=== PATIENT | male | born 1970 | race Caucasian/White ===

== ENCOUNTER 2019-01-19 14:15 | Emergency (ER) | payer SELFPAY ==
[2019-01-19 14:21] VITALS: BP 144/93; PULSE 87; RESP 17; TEMP 36.6; O2SAT 98
--- NOTE | 2019-01-19 14:30 | W.ED.GENAD ---
Discharge Plan Disposition Patient Disposition: HOME Condition: Good Discharge Details Chief Complaint: Allergic Clinical Impression: Hives Primary Care Provider: Francesco De Jesus ED Provider: King Arce Home Meds and New Rx's Prescriptions: New ranitidine HCl 150 mg tablet 150 mg PO DAILY Qty: 10 RF: 0 prednisone 50 MG tablet 50 mg PO DAILY Qty: 5 RF: 0 hydroxyzine HCl 25 mg tablet 25 mg PO QID PRN (Reason: itching) 7 Days Qty: 28 RF: 0 No Action sumatriptan succinate [Imitrex] 25 MG tablet 25 mg PO BID PRN Qty: 8 RF: 5 saw palmetto fruit 450 MG capsule 450 mg PO DAILY Qty: 90 RF: 3 hydrocortisone [Anusol-HC] 30 GM cream with perineal applicator 1 applic RC BID PRNQty: 30 RF: 1 acetaminophen [Tylenol] 325 MG tablet 325 mg PO Q4H PRN PRNQty: 0 RF: 0 ibuprofen 800 MG tablet 800 mg PO PRN PRNRF: 0 Discharge Instructions Instructions: Urticaria (ED) Additional Instructions: Please take the medication as directed. If you notice any worsening of your symptoms, or any new symptoms such as lesions in your mouth, worsening rash vomiting, diarrhea, fever, chills, shortness of breath, chest pain, numbness, weakness, or fainting , please return immediately to the emergency department for reevaluation. Please follow up with your primary care provider as soon as possible for reassessment and reevaluation. As always, it was a pleasure participating in your medical care today. Referrals: Francesco De Jesus [Primary Care Provider] - Medical Decision Making This is a pleasant 48-year-old male who presents for evaluation of hives on his arms for the last 6 days. It is slightly improved with Benadryl and topical Cortistat corticosteroid. He does admit to notable itchiness. Exam demonstrates no evidence of oral lesions. Negative Nikolsky sign. No evidence of Franklin-Bakari syndrome, staph scalded skin syndrome, shingles, or toxic epidermal necrolysis. No signs or symptoms of anaphylaxis. No other significant abnormalities. We will give the patient oral steroids and a prescription for this, start him on an H2 ken, and give Atarax for itching. I have extensively reviewed the treatment plan and discharge instructions with the patient and their family. I have addressed all patient concerns at this time. The patient and family was made aware of what symptoms to monitor for that would warrant a return to the emergency department. Discussed the plan with the patient and family, they demonstrate verbal understanding and agreement with our assessment and plan at this time. HPI General Date/Time Provider Initiated Documentation: 01/19/19 14:18. HPI Narrative: This is a 40-year-old male with no significant past medical history except for an allergy to penicillins and tomatoes who presents today with for evaluation of hives. Patient states that for the last 6 days he has had mild hives on his arms and shoulders. He has been taking [id number] hydrocortisone cream as well as Benadryl, has only noticed mild improvement with this. He is notably pruritic. He denies any oral lesions, nausea vomiting or diarrhea, difficulty swallowing, sore throat, shortness of breath. He denies any history of anaphylaxis. He states that the symptoms are consistent with previous mild allergic reactions to exposure to tomatoes. He denies any other complaints or modifying factors at this reny. Related Data Home Medications Medication Instructions Recorded Confirmed acetaminophen [Tylenol] 325 mg PO Q4H PRN PRN #0 tab 11/27/16 01/19/19 sumatriptan succinate [Imitrex] 25 mg PO BID PRN #8 tab 04/14/17 01/19/19 hydrocortisone [Anusol-HC] 1 applic RC BID PRN #30 gm 04/21/17 01/19/19 saw palmetto fruit 450 mg PO DAILY #90 tab-cap 04/21/17 01/19/19 ibuprofen 800 mg PO PRN PRN 10/17/17 01/19/19 hydroxyzine HCl 25 mg PO QID PRN 7 Days #28 tab 01/19/19 prednisone 50 mg PO DAILY #5 tab 01/19/19 ranitidine HCl 150 mg PO DAILY #10 tab 01/19/19 Previous Rx's Medication Instructions Recorded acetaminophen [Tylenol] 325 mg PO Q4H PRN PRN #0 tab 11/27/16 hydroxyzine HCl 25 mg PO QID PRN 7 Days #28 tab 01/19/19 prednisone 50 mg PO DAILY #5 tab 01/19/19 ranitidine HCl 150 mg PO DAILY #10 tab 01/19/19 Allergies Allergy/AdvReac Type Severity Reaction Status Date / Time ampicillin Allergy Intermediate Hives Unverified 01/19/19 14:23 Penicillins Allergy Intermediate Hives Unverified 01/19/19 14:23 General Stated Complaint: Allergic RAMON: 3 Review of Systems Review of Systems All systems reviewed & are unremarkable except as noted in HPI and below PFSH Family History Mother Hyperlipidemia Father No problems noted. Sister No problems noted. Brother No problems noted. Grandfather No problems noted. Grandfather Diabetes Grandmother Heart disease Hyperlipidemia Stroke Grandmother No problems noted. Daughter No problems noted. Daughter No problems noted. Daughter No problems noted. Social History Smoking/Tobacco Use Status: Former Tobacco Use Alcohol Intake: current Alcohol Intake frequency: holidays/special occasions only Substance use type: does not use Do you feel safe in your relationship?: Yes Exam Narrative Exam Narrative: 1.Const: Well-nourished, Well-developed, appearing stated age 2.Eyes: PERRL, no conjunctival injection, and symmetrical lids. 3.ENT: Atraumatic external nose and ears. Moist MM. Neck: Symmetric, trachea midline, No thyromegaly. 4.CVS: +S1/S2, No murmurs or gallops. Peripheral pulses 2+ and equal in all extremities. Brisk capillary refill in all extremities. 5.RESP: Unlabored respiratory effort. Clear to auscultation bilaterally. No wheezes rales or rhonchi 6.GI: Soft, Nontender/Nondistended, No hepatosplenomegaly. No guarding or rebound. 7.MSK: Normocephalic/Atraumatic, Extremities w/o deformity or ttp No cyanosis or clubbing, Normal movement of all extremities 8.Skin: Warm, Dry. Mild hives over the patient's upper arms bilaterally. Notably blanchable. No vesicles. Negative Nikolsky sign. No evidence of Franklin-Bakari syndrome, staph scalded skin syndrome, shingles, or toxic epidermal necrolysis. 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 Sensation grossly intact, no focal neurologic deficits. 10.Psych: (AAO) x3. Appropriate mood and affect Course Vital Signs Temperature 36.6 C 01/19/19 14:21 Pulse 87 01/19/19 14:21 Respiratory Rate 17 01/19/19 14:21 Blood Pressure 144/93 H 01/19/19 14:21 Pulse Oximetry 98 01/19/19 14:21 Temperature 36.6 C 01/19/19 14:21 Temperature Source Temporal Artery Scan 01/19/19 14:21 Pulse 87 01/19/19 14:21 Respiratory Rate 17 01/19/19 14:21 Respiratory Effort Non-Labored 01/19/19 14:21 Blood Pressure 144/93 H 01/19/19 14:21 Blood Pressure Position Sitting 01/19/19 14:21 Pulse Oximetry 98 01/19/19 14:21 Oxygen Delivery Method Room Air 01/19/19 14:21 Oxygen Flow Rate 0 01/19/19 14:21 Pain Level 7 01/19/19 14:21
[2019-01-19] MEDS: predniSONE 20 MG TAB 60 MG PO (14:31)
[2019-01-19] MEDS: hydrOXYzine HCL 25 MG TAB PO (14:32)
== END 2019-01-19 14:44 | disposition home or self-care (01) ==
LOC: ER 14:52
PROVIDERS: Emergency Provider Student in an Organized Health Care Education/Training Program; PCP Family Medicine
DX: L50.0 Allergic urticaria (principal)
CPT/HCPCS: 99283; J7512

== ENCOUNTER 2019-09-18 14:04 | Emergency (ER) | payer OTHER, SELFPAY ==
[2019-09-18] VITALS (10 sets, daily range): BP systolic 128–160; BP diastolic 76–101; PULSE 76–104; RESP 16–20; TEMP 36.1–37.1; O2SAT 96–99
--- NOTE | 2019-09-18 14:55 | ED.GENADUL_ITS ---
Discharge Plan Disposition Patient Disposition: HOME Condition: Stable Discharge Details Chief Complaint: RespSymp Clinical Impression: Upper respiratory disease, Chest pain Primary Care Provider: Francesco De Jesus ED Provider: Dre Martines Home Meds and New Rx's Prescriptions: New prednisone 20 mg tablet 60 mg PO DAILY 4 Days Qty: 12 RF: 0 doxycycline hyclate 100 mg tablet 100 mg PO BID Qty: 14 RF: 0 Continued sumatriptan succinate [Imitrex] 25 MG tablet 25 mg PO BID PRN Qty: 8 RF: 5 saw palmetto fruit 450 MG capsule 450 mg PO DAILY Qty: 90 RF: 3 hydrocortisone [Anusol-HC] 30 GM cream with perineal applicator 1 applic RC BID PRNQty: 30 RF: 1 acetaminophen [Tylenol] 325 MG tablet 325 mg PO Q4H PRN PRNQty: 0 RF: 0 ibuprofen 800 MG tablet 800 mg PO PRN PRNRF: 0 ranitidine HCl 150 mg tablet 150 mg PO DAILY Qty: 10 RF: 0 Discharge Instructions Instructions: Upper Respiratory Infection (ED) Additional Instructions: follow up with your primary care provider within 1 week especially if symptoms continue if you feel more ill, have worsening shortness of breath or pain return to the emergency department Stand Alone Forms: Work Release Discharge Data Discharge Date/Time-TO BE ENTERED AT DEPARTURE: 09/18/19 18:55 Medical Decision Making <MIRYAM Montero - Last Filed: 09/20/19 00:52> 49-year-old patient presenting for 2 days of flulike symptoms. Patient reports moderate nasal drainage and congestion. Denies sore throat. Reports mild headache. No associated dizziness. Patient reports moderate cough which is his primary complaint at this time. Patient reports a spastic type cough associated with moderate chest congestion. Patient reports mild chest pressure but no chest pain at rest or radicular type symptoms. Patient does report some diaphoresis. Patient does report mild nausea after coughing. Denies vomiting or diarrhea. Denies abdominal pain. Patient works at the hospital cleaning. Patient reports moderate fatigue but no widespread body ache. Patient is a non- smoker but did have a smoking history 15 years ago. No history of coronary artery disease. History of borderline hyperlipidemia. Influenza testing negative. This patient's EKG reveals a regular rate and rhythm with a rate of 76. Patient has a nonspecific RSR pattern in V1 and V2. This was reviewed with my attending Dr. Luz Maria Vann. There are no previous comparisons. After discussion with Dr. Vann regarding patient's upper respiratory symptoms in conjunction with presentation of diaphoresis and nonspecific EKG changes her recommendation is to add troponin to evaluate for possible ACS Although patient lacks associated chest pain or radicular symptoms. Patient's signed out to the oncoming provider pending the remaining results.. <Dre Martines MD - Last Filed: 09/18/19 18:43> Pt's xray unremarkable. Pt states he feels much better after having some nebs and has clear lungs. STates cough for several days without fevers so doubt influenza, could have pna not evidence on xray. Will obtain second troponin and continue to monitor, patient speaking in full sentences and now appears well on exam. second troponin negative and he feels much better. Suspect early pna and will treat with doxycycline and also inhaler and steroids. ADvised to f/u with pcp and return precautions given Imaging Data Radiologic Study: Attestation: I personally reviewed and interpreted this imaging study as follows: Imaging: X-Ray Radiologist's impression: no acute findings Lab Data Lab results reviewed: Yes I reviewed the patient's lab results. HPI <MIRYAM Montero - Last Filed: 09/20/19 00:52> General Date/Time Provider Initiated Documentation: 09/18/19 14:15 . HPI Narrative: Is a 49-year-old patient presenting for 2 days of flulike symptoms. Patient reports moderate nasal drainage and congestion. Denies sore throat. Reports mild headache. No associated dizziness. Patient reports moderate cough which is his primary complaint at this time. Patient reports a spastic type cough associated with moderate chest congestion. Patient reports mild chest pressure but no chest pain at rest or radicular type symptoms. Patient does report some diaphoresis. Patient does report mild nausea after coughing. Denies vomiting or diarrhea. Denies abdominal pain. Patient works at the hospital cleaning. Patient reports moderate fatigue but no widespread body ache. Patient is a non- smoker but did have a smoking history 15 years ago. No history of coronary artery disease. History of borderline hyperlipidemia. Related Data Home Medications Medication Instructions Recorded Confirmed acetaminophen [Tylenol] 325 mg PO Q4H PRN PRN #0 tab 11/27/16 09/18/19 sumatriptan succinate [Imitrex] 25 mg PO BID PRN #8 tab 04/14/17 09/18/19 hydrocortisone [Anusol-HC] 1 applic RC BID PRN #30 gm 04/21/17 09/18/19 saw palmetto fruit 450 mg PO DAILY #90 tab-cap 04/21/17 09/18/19 ibuprofen 800 mg PO PRN PRN 10/17/17 09/18/19 ranitidine HCl 150 mg PO DAILY #10 tab 01/19/19 09/18/19 doxycycline hyclate 100 mg PO BID #14 tab 09/18/19 prednisone 60 mg PO DAILY 4 Days #12 tab 09/18/19 Previous Rx's Medication Instructions Recorded acetaminophen [Tylenol] 325 mg PO Q4H PRN PRN #0 tab 11/27/16 ranitidine HCl 150 mg PO DAILY #10 tab 01/19/19 doxycycline hyclate 100 mg PO BID #14 tab 09/18/19 prednisone 60 mg PO DAILY 4 Days #12 tab 09/18/19 Allergies Allergy/AdvReac Type Severity Reaction Status Date / Time ampicillin Allergy Intermediate Hives Unverified 09/18/19 14:28 Penicillins Allergy Intermediate Hives Unverified 09/18/19 14:28 General Stated Complaint: RespSymp RAMON: 3 Review of Systems <MIRYAM Montero - Last Filed: 09/20/19 00:52> All systems reviewed & are unremarkable except as noted in HPI and below Constitutional Constitutional: Reports chills, Reports fatigue, Reports fever(s) (Subjective), Reports headache(s) and Reports malaise ENT Ears, Nose, Mouth, and Throat: Reports headache(s), Reports nasal congestion, Reports nasal discharge, Denies nasal obstruction, Denies neck pain, Denies tinnitus, Denies sinus pain, Denies sinus pressure and Denies sore throat Cardiovascular Cardiovascular: Denies dyspnea on exertion Respiratory Respiratory: Reports cough, Denies dyspnea on exertion and Denies wheezing Gastrointestinal Gastrointestinal: Denies abdominal pain, Reports nausea and Denies vomiting Musculoskeletal Musculoskeletal: Denies neck pain Neurologic Neurologic: Reports headache(s) Endocrine Endocrine: Reports fatigue Allergic/Immunologic Allergic/Immunologic: Denies wheezing PFSH <MIRYAM Montero - Last Filed: 09/20/19 00:52> Family History Mother Hyperlipidemia Father No problems noted. Sister No problems noted. Brother No problems noted. Grandfather No problems noted. Grandfather Diabetes Grandmother Heart disease Hyperlipidemia Stroke Grandmother No problems noted. Daughter No problems noted. Daughter No problems noted. Daughter No problems noted. Social History Smoking/Tobacco Use Status: Former Tobacco Use Alcohol Intake: current Alcohol Intake frequency: holidays/special occasions only Substance use type: does not use Do you feel safe at home: Yes Do you feel safe in your relationship?: Yes Exam <MIRYAM Montero - Last Filed: 09/20/19 00:52> Narrative Exam Narrative: CONST: Ill appearing patient, in no acute distress. Well hydrated. Alert and oriented. HENMT: Head nomocephalic, normal to inspection. Atraumatic. Hearing grossly normal. TM with mild effusion on the left. Normal appearance on the right. Mild pharyngeal erythema. No sinus pain and pressure on exam. EYES: General normal appearance. Alignment normal. Eyelids normal. Conjunctiva normal. NECK: Normal visual inspection. FROM. Trachea midline. No Midline tenderness. No cervical lymphadenopathy present CHEST: Normal insepection of the chest. RESP: Normal respiratory effort. Speaking full sentences. No audible wheezing. No retractions. Bronchospastic cough. Breath sounds are clear and equal through all lung rodgers. Scattered wheezing. No rhonchi or rales. CARDIO: No JVD. No murmur. Regular rate and rhythm MUSCULOSKELETAL: Normal Gait. FROM of all extremities. SKIN: No rashes. Clammy NEURO: Alert and awake. Speech clear. PSYCH: Normal affect. Cooperative. Course <MIRYAM Montero - Last Filed: 09/20/19 00:52> Vital Signs Vital signs: Vital Signs Temperature 36.1 C L 09/18/19 14:22 Pulse 95 H 09/18/19 14:22 Respiratory Rate 20 09/18/19 14:22 Blood Pressure 149/101 H 09/18/19 14:22 Pulse Oximetry 98 09/18/19 14:22 Temperature 36.1 C L 09/18/19 14:22 Temperature Source Skin 09/18/19 14:22 Pulse 95 H 09/18/19 14:22 Respiratory Rate 20 09/18/19 14:22 Respiratory Effort 09/18/19 14:26 Blood Pressure 149/101 H 09/18/19 14:22 Blood Pressure Position Sitting 09/18/19 14:22 Pulse Oximetry 98 09/18/19 14:22 Oxygen Delivery Method Room Air 09/18/19 14:22 Oxygen Flow Rate 0 09/18/19 14:22 Lab/Test Results Lab/Test Results: 09/18/19 14:26 Nasopharynx Influenza Types A,B Antigen - Pending Sign Out <MIRYAM Montero - Last Filed: 09/20/19 00:52> Sign Out Data: Sign Out Comment: signed out pending initial troponin, repeat troponin and dispo. pt flu like w/ diaphoresis and mild non specific ECG changes. Last updated by Elda Rodarte PA at 09/18/19 16:19
[2019-09-18] MEDS: Albuterol/Ipratropium 3 ML UPD VIAL UPD (15:12)
--- NOTE | 2019-09-18 15:37 | DI.RAD_ITS ---
EXAM: XR CHEST 2V PA LATERAL CLINICAL HISTORY: cough r/o pneumonia. TECHNIQUE: 2D digital imaging was performed. COMPARISON: No exams were available for comparison FINDINGS: LUNGS: Clear. No pleural abnormality seen. HEART: Normal. MEDIASTINUM: Normal. OTHER FINDINGS:Normal. BONE:Normal. IMPRESSION: No acute pulmonary findings.
[2019-09-18 15:48] LABS: Abs Immature Grans 0.01 k/cumm (0.0-0.09); Absolute Basophil Count 0.03 k/cumm (0.0-0.2); Absolute Lymphocyte Count 1.44 k/cumm (1.2-3.4); Absolute Monocyte Count 0.46 k/cumm (0.11-0.7); Absolute Neutrophil Count 2.31 k/cumm (1.2-6.7); Basophils % 0.7; Eosinophils % 2.3; HCT 40.9 % (40.0-50.0); HGB 12.8 g/dL (13.5-17.5); Immature Grans % 0.2 %; Lymphocytes % 33.1; Mean Corp. HGB Concentration 31.3 g/dL (32.0-36.0); Mean Corpuscular Hemoglobin 25.9 pg (27.0-33.0); Mean Corpuscular Volume 82.8 fL (80-95); Monocytes % 10.6; Neutrophils % 53.1; Platelet Count 278 x1000/uL (130-400); RBC 4.94 m/cumm (4.50-6.00); RBC Distribution Width 16.4 % (11.8-14.1); White Blood Cell Count 4.35 k/cumm (4.4-10.8)
[2019-09-18 16:05] LABS: ALT 41 U/L (16-63); AST 36 U/L (15-37); Albumin 4.3 g/dL (3.4-5.0); Alkaline Phosphatase 126 U/L (46-116); Anion Gap 11.6 mmol/L (3-11); BUN 11 mg/dL (7-18); Bilirubin, Total 0.4 mg/dL (0.2-1.0); CO2 25.4 mmol/L (21.0-32.0); CREATININE 0.79 mg/dL (0.70-1.30); Calcium 8.7 mg/dL (8.5-10.1); Chloride 103 mmol/L (98-107); Glucose 98 mg/dL (74-106); Potassium 3.8 mmol/L (3.5-5.1); Sodium 140 mmol/L (136-145); Total Protein 8.1 g/dL (6.4-8.2)
[2019-09-18 16:06] LABS: Troponin I < 0.05 ng/Ml (<0.06)
--- NOTE | 2019-09-18 16:34 | DI.VRAD_ITS ---
PROCEDURE INFORMATION: Exam: XR Chest, 2 Views Exam date and time: 09/18/2019 3:43 PM Age: 49 years old Clinical indication: Patient HX: Cough, R/O pneumonia TECHNIQUE: Imaging protocol: XR of the chest Views: 2 views. COMPARISON: No relevant prior studies available. FINDINGS: Lungs: Unremarkable. No consolidation. Pleural space: Unremarkable. No pleural effusion. No pneumothorax. Heart/Mediastinum: Unremarkable. No cardiomegaly. Bones/joints: Unremarkable. IMPRESSION: No acute findings. Dictated and Authenticated by: Demarco Marquis MD. Ordering:CATRACHITA Schroeder MD
[2019-09-18] MEDS: predniSONE 20 MG TAB 60 MG PO (17:51)
[2019-09-18 18:35] LABS: Troponin I < 0.05 ng/Ml (<0.06)
[2019-09-18] MEDS: Inhaler, Assist Device 1 EACH MC (18:49)
[2019-09-18] MEDS: Albuterol HFA 8 GM 60 PUFF INH IH (18:49)
[2019-09-18] MEDS: Doxycycline Hyclate 100 MG CAP PO (18:49)
== END 2019-09-18 18:55 | disposition home or self-care (01) ==
PROVIDERS: Physician Assistant; Emergency Provider Emergency Medicine; PCP Family Medicine
DX: J06.9 Acute upper respiratory infection, unspecified (principal); R07.89 Other chest pain
CPT/HCPCS: 80053; 87449; 93005; 94640; 99284; 71046; 84484; 85025; 93010; J7512; J7620

== ENCOUNTER 2020-12-25 02:29 | Outpatient (CLI) | payer MEDICAID, SELFPAY ==
[2020-12-25 10:26] LABS: Source Nasal/Nares
[2020-12-25 13:33] LABS: COVID-19 PCR Negative (Negative)
== END 2020-12-25 02:30 | disposition home or self-care (01) ==
LOC: LBO 02:30
PROVIDERS: PCP Family Medicine; Visit Provider Surgery
DX: Z20.822 Contact with and (suspected) exposure to COVID-19 (principal)
CPT/HCPCS: 87635

== ENCOUNTER 2020-12-28 09:08 | Day surgery (SDC) | payer MEDICAID, SELFPAY ==
--- NOTE | 2020-12-28 06:39 | W.COLOREPORT ---
Date of service: 12/28/20 Time of Service: 09:45 Colonoscopy Report Date of procedure: 12/28/20 Pre-op diagnosis general: Colon Cancer Screening Post-op diagnosis procedure note: other (polyps) Procedure: Colonoscopy with polypectomy Surgeon: Jimena Garcia Anesthesia Type: General:No Airway (ASA 2/ Edwin Montes, TAYE) Estimated blood loss (mL): 3 Pathology: other (Ascending polyp and rectal polyp) Complications: None Disposition: same day Indications: The patient is here for Colonoscopy pre-op. He has no family history of colon cancer. He has not had any bowel habit changes. -Discussed colonoscopy bowel prep as well as the procedure. Discussed possible complications of the procedure to include bleeding, pain, perforation, missed small lesion/polyp, sore throat, aspiration and adverse reaction to the medications. Questions were answered to patient?s satisfaction. No guarantees were implied or given. Prep: Miralax/Dulcolax Procedure Start Time: 09:49 Procedure End Time: 10:11 Retraction Time: 13 minutes Findings: 2 small sessile polyps Procedure Description: After informed consent was obtained the patient was taken to the procedure room and placed in a left decubitous position. Monitors were applied and a time out was done. The patients name, date of , procedure, allergies to medications and metal in their body was reviewed. The patient was then sedated. Once sedated and comfortable a rectal exam was done. External exam was normal. Internal exam revealed a normal sphincter tone and no palpable masses. The prostate felt smooth. The scope was then introduced and retro-flexed. No internal hemorrhoids, polyps or masses were identified on retro-flexion. The scope was then advanced to the cecum without difficulty. The ileocecal vlave and appendiceal orifice were identified. The prep was adequate. The scope was then slowly retracted over 13 minutes back into the rectum. Polyps were removed with cold forceps in the ascending colon and rectum. There was no diverticulosis noted. The scope was removed and the patient was woken up and taken back to Same day surgery in stable condition. The patient tolerated the procedure well and there were no immediate complications. Follow up: The patient should follow up in 5 years unless they develop changes in bowel habits or other new gastrointestinal complaints.
--- NOTE | 2020-12-28 06:40 | W.PM.DSUDISC ---
Discharge Plan Disposition Patient Disposition: HOME Condition: Good Discharge Details Reason For Visit: Colonoscopy Attending Provider: Jimena Garcia Primary Care Provider: Francesco De Jesus Home Meds and New Rx's Prescriptions: Continued hydrocortisone [Proctosol HC] 2.5 % cream with perineal applicator 1 applic KS BID-QID PRN (Reason: pain) Qty: 30 RF: 4 CBD Oil 27 mg 27 mg PO DAILY RF: 0 omeprazole 40 mg capsule,delayed release(DR/EC) 40 mg PO DAILY Qty: 90 RF: 0 diclofenac sodium [Voltaren] 1 % gel 1 gm TP TID PRNRF: 0 saw palmetto 450 MG capsule 450 mg PO DAILY Qty: 90 RF: 3 albuterol sulfate [ProAir HFA] 90 mcg/actuation HFA aerosol inhaler 2 puff IH 6XD PRN (Reason: shortness of breath or wheezing) Qty: 18 RF: 0 ibuprofen 800 mg tablet 800 mg PO Q8H PRN (Reason: ankle pain) Qty: 90 RF: 2 acetaminophen 500 mg tablet 1,000 mg PO Q6H PRN (Reason: fever) Qty: 90 RF: 5 sumatriptan succinate 25 mg tablet 25 mg PO .COMPLEX Qty: 10 RF: 6 acetaminophen [Tylenol] 325 MG tablet 325 mg PO Q4H PRN PRNQty: 0 RF: 0 Discontinued bisacodyl [Dulcolax (bisacodyl)] 5 mg tablet,delayed release (DR/EC) 5 mg PO ONCE Qty: 4 RF: 0 polyethylene glycol 3350 17 gram/dose powder 238 g PO ONCE Qty: 238 RF: 0 Discharge Instructions Additional Instructions: Findings: 2 polyps Follow up: 5 years more then likely Please call if you develop: fevers >101.5 Nausea or Vomiting Abdominal pain that is not transient Rectal bleeding that is more then a tbsp A hard abdomen and inability to pass gas DAY SURGERY UNIT POST ENDOSCOPY INSTRUCTIONS Instructions for everyone who is given Anesthesia: For your safety, please do the following for the next 24 Hours: a. Do not drive or operate dangerous equipment b. Do not drink alcohol beverages or use any recreational drugs for the first 24 hours or while taking pain medications. The medications in your body may have a reaction that can be dangerous. c. Do not make any important decisions or sign any important papers 1. Generally there are no restrictions on your activity after a day or so has gone by, but you may feel a bit fatigued for a few days. 2. After you arrive home you may have a light meal and return to a normal diet as you can tolerate it without feeling sick to your stomach. 3. After surgery, you may feel pain or discomfort. This should be only transient, but if it persists please contact your doctor. 4. If there are any questions regarding the findings of your procedure, please feel free to contact your doctor. 6. If you are unable to contact your doctor with a problem, contact the hospital at [phone]. 7. Continue all your regular medications unless directed otherwise. I understand the above instructions and have no questions. Signature of Patient or Responsible Adult Escort Date/Time Name of Responsible Adult Escort Signature of Nurse Date/Time Activity:: Activity as Tolerated Diet:: As Tolerated Discharge Orders Discharge Orders: Discharge Order (Routine); Ordered 12/28/20 Ordered By: Jimena Garcia
[2020-12-28 09:10] VITALS: BP 149/95; PULSE 70; RESP 18; TEMP 36.2; O2SAT 97
--- NOTE | 2020-12-28 09:23 | ANES.PREOP_ITS ---
General Info Date of Service Date Performed: 12/28/20 Height: 5 ft 9 in Weight: 90.265 kg Body Mass Index (BMI): 29.3 Surgical Procedure: Operation Date: 12/28/20 10:20 Proposed Procedures Side Surgeon p Colonoscopy Jimena Garcia MD Meds Allergies and Home Medications Allergies Allergy/AdvReac Type Severity Reaction Status Date / Time ampicillin Allergy Intermediate Hives Verified 12/28/20 09:18 Penicillins Allergy Intermediate Hives Verified 12/28/20 09:18 Home Medication Medication Instructions Recorded acetaminophen [Tylenol] 325 mg PO Q4H PRN PRN #0 tab 11/27/16 saw palmetto 450 mg PO DAILY #90 tab-cap 04/21/17 CBD Oil 27 mg PO DAILY 09/20/19 albuterol sulfate 90 mcg/actuation 2 puff IH 6XD PRN #18 gm 09/20/19 aerosol inhaler omeprazole 40 mg capsule,delayed 40 mg PO DAILY #90 cap 03/31/20 release hydrocortisone 2.5 % topical cream 1 applic OK BID-QID PRN #30 gm 05/26/20 with perineal applicator ibuprofen 800 mg tablet 800 mg PO Q8H PRN #90 tab 06/25/20 acetaminophen 500 mg tablet 1,000 mg PO Q6H PRN #90 tab 07/27/20 diclofenac sodium 1 % topical gel 1 gm TP TID PRN gm 09/25/20 sumatriptan succinate 25 mg tablet 25 mg PO .COMPLEX #10 tab 10/19/20 Current Visit Medications: Current Medications Generic Name Dose Route Start Last Admin Trade Name Freq PRN Reason Stop Dose Admin Hyoscyamine Sulfate 0.125 mg 12/28/20 06:41 Hyoscyamine 0.125 Mg Sl/Oral/Chew SL DIRECTED PRN Ringer's Solution 1,000 mls @ 80 mls/hr 12/28/20 06:00 IV 01/24/21 23:59 INFUSION COUNTS INCLUDE 234 BEDS AT THE [facility] IV Miscellaneous Supplies 1 each 12/28/20 06:00 Iv Access IV 01/24/21 23:59 DIRECTED COUNTS INCLUDE 234 BEDS AT THE [facility] Ondansetron HCl 4 mg 12/28/20 06:41 Ondansetron 4 Mg/2 Ml Vial IVP Q4H PRN PRN Nausea / Vomiting Sodium Chloride 0 ml 12/28/20 06:00 Normal Saline Flush 10 Ml Syr IV 01/24/21 23:59 PRN PRN Sodium Chloride 0 ml 12/28/20 06:00 Normal Saline 10 Ml Vial IJ 01/24/21 23:59 DIRECTED PRN Sterile Water 0 ml 12/28/20 06:00 Water,Injection,Sterile 10 Ml Vial IJ 01/24/21 23:59 DIRECTED PRN PFSH Active Problems Active Problems: Problem Status Onset Code Screening for colon cancer Z12.11 Osteochondroma of left lower leg D16.22 Migraine G43.909 Pain in left lower leg M79.662 Constipation K59.00 Medical History Medical History Acute pancreatitis Diverticulitis External hemorrhoid Migraine URI (upper respiratory infection) Tobacco Smoking/Tobacco Use Status: Former Tobacco Use Passive smoking exposure: No Second hand exposure: Yes Alcohol Alcohol Intake: current Alcohol intake frequency: 0-2 drinks per day Alcohol type: hard liquor Substance Use Substance use: Daily Substance use type: marijuana Vital Signs and Lab Results Lab Results Blood Type / Crossmatch: No Data to Display Complete Blood Count: White Blood Count 4.35 k/cumm (4.4-10.8) L 09/18/19 15:25 09/18/19 Red Blood Count 4.94 m/cumm (4.50-6.00) 09/18/19 15:25 09/18/19 Hemoglobin 12.8 g/dL (13.5-17.5) L 09/18/19 15:25 09/18/19 Hematocrit 40.9 % (40.0-50.0) 09/18/19 15:25 09/18/19 Platelet Count 278 x1000/uL (130-400) 09/18/19 15:25 09/18/19 Complete Metabolic Panel: Sodium Level 140 mmol/L (136-145) 09/18/19 15:25 09/18/19 Potassium Level 3.8 mmol/L (3.5-5.1) 09/18/19 15:25 09/18/19 Chloride Level 103 mmol/L (98-107) 09/18/19 15:25 09/18/19 Carbon Dioxide Level 25.4 mmol/L (21.0-32.0) 09/18/19 15:25 09/18/19 Blood Urea Nitrogen 11 mg/dL (7-18) 09/18/19 15:25 09/18/19 Creatinine 0.79 mg/dL (0.70-1.30) 09/18/19 15:25 09/18/19 Magnesium Level 2.4 mg/dL (1.8-2.4) 11/25/16 06:33 11/25/16 Calcium Level 8.7 mg/dL (8.5-10.1) 09/18/19 15:25 09/18/19 Albumin 4.3 g/dL (3.4-5.0) 09/18/19 15:25 09/18/19 Glucose Level 98 mg/dL (74-106) 09/18/19 15:25 09/18/19 Hemoglobin A1c 5.5 % (4.5-6.2) 11/25/16 06:33 11/25/16 C-Reactive Protein 21.51 mg/dL (0.0-0.3) H 11/26/16 07:00 11/26/16 Liver Function Panel: Alanine Aminotransferase (ALT/SGPT) 41 U/L (16-63) 09/18/19 15:25 09/18/19 Aspartate Amino Transf (AST/SGOT) 36 U/L (15-37) 09/18/19 15:25 09/18/19 Coagulation Panel: No Data to Display Cardiac Panel: Troponin I < 0.05 ng/Ml (<0.06) 09/18/19 18:10 09/18/19 Arterial Blood Gas: No Data to Display Venous Blood Gas: Venous Blood Lactate 1.35 mmol/L (0.90-1.70) 11/24/16 19:20 11/24/16 Pancreas Panel: Amylase Level 48 U/L (25-115) 11/25/16 06:33 11/25/16 Lipase 306 U/L (73-393) 11/25/16 06:33 11/25/16 Thyroid Panel: No Data to Display Infectious Disease: Coronavirus (COVID-19)(PCR) Negative (Negative) 12/25/20 08:41 12/25/20 Coronavirus 2019 Source Nasal/nares 12/25/20 08:41 12/25/20 Blood Cultures: No Data to Display Toxicology Panel: No Data to Display Anesthesia Assessment and Plan Anesthesia History Personal History: No History of Anesthesia Complications Family History: No Family History of Anesthesia Complications Exercise Tolerance Exercise Tolerance: Metabolic Equivalents>4 Pertinent Negatives Pertinent Negatives: No Symptoms of GERD, No Major Cardiovascular Symptoms or Complaints, No Major Pulmonary Symptoms or Complaints and No History of CVA/TIA Cardiac & Pulmonary Exam Cardiac Exam: Normal S1/S2 Heart Sounds Pulmonary Exam: Clear Bilateral Breath Sounds Airway Exam Known Difficult Airway: No Mallampati Class: 1 Mouth Opening: Normal (> 3cm) Thyromental Distance: Greater than 3 cm Neck Range of Motion: Full ROM Neck Circumference: Normal Teeth Condition: Normal Dentition ASA Classification ASA Score: ASA 1 ASA Emergency: No NPO Status NPO Status: NPO Clears >2 hours, Solids >8 hours Anesthesia Plan Anesthesia Technique: General Anesthesia Airway Planned: Natural Airway Monitors Used: Standard Monitors
[2020-12-28] MEDS: Lactated Ringers 1,000 ML 80 ML IV (09:28)
[2020-12-28 09:32] VITALS: BMI 29.3
--- NOTE | 2020-12-28 10:05 | BOWEL_PTH ---
PATIENT: Valente Capps LOC: [facility] U#:[id number] AGE/SX: 50/M ROOM: RE12/28/[address]: Jimena Garcia MD : 1970 BED: DIS: 12/28/2020 SPEC #: [id number] RECD: 12/28/20 13:05 STATUS: ASH REQ #: [id number] TOPHER: 12/28/20 10:[address]: Jimena Garcia DEPT: Surgical Specimen RECD BY: Jany Cavazos ENTERED: 12/28/20 13:06 SP TYPE: Bowel OTHR DR: Francesco De Jesus MD Tissues: 1 - BIOPSY BOWEL 2 - BIOPSY BOWEL Procedures: GROSS AND MICRO LEVEL 4 Comments: [id number]
[2020-12-28 10:17] VITALS: BP 144/93; PULSE 68; RESP 18; TEMP 36; O2SAT 100
--- NOTE | 2020-12-28 10:19 | W.ANESPOSTOP ---
Postoperative Evaluation Date, Time and Location Date Performed: 12/28/20 Time Performed: 10:19 Patient Location: Day Surgery Unit Vital Signs Most Recent Imported Vital Signs: Most Recent Vital Signs Temp Pulse Resp BP Pulse Ox 36.2 C L 70 18 149/95 H 97 12/28/20 09:10 12/28/20 09:10 12/28/20 09:10 12/28/20 09:10 12/28/20 09:10 Most Recent Manually Entered Vital Signs: Adult Blood Pressure: 144/93 Heart Rate: 69 Respirations: 12 Oxygen Saturation (%): 98 Temperature (C): 36.5 C Pain Score (0-10 Scale): 0 Assessment Mental Status: Awake (Alert & Oriented to Patient Baseline) Airway and Respiratory Function: Patent airway with normal (patient baseline) respiratory exam Cardiovascular Function: Hemodynamically Stable Hydration Status: Adequately Hydrated Nausea & Vomiting: No Nausea or Vomiting Pain: Pt. Denies Any Pain Peripheral Nerve Block: Patient did not receive a nerve block
[2020-12-28 10:21] VITALS: BP 144/93; PULSE 69; RESP 12; TEMPC 36.5; O2SAT 98
[2020-12-28 10:38] VITALS: BP 146/102; PULSE 66; RESP 18; TEMP 36; O2SAT 98
== END 2020-12-28 11:20 | disposition home or self-care (01) ==
LOC: SUR 09:08
PROVIDERS: PCP Family Medicine; Visit Provider Surgery
PROC: 0DJD8ZZ Inspection of Lower Intestinal Tract, Via Natural or Artificial Opening Endoscopic (ICD-10-PCS; CPT 45378; principal; 2020-12-28 10:15)
DX: Z12.11 Encounter for screening for malignant neoplasm of colon (principal); D12.2 Benign neoplasm of ascending colon; K62.1 Rectal polyp
CPT/HCPCS: 45380; 88305; J2001

== ENCOUNTER 2021-08-12 02:35 | Outpatient (CLI) | payer BC, MEDICAID, SELFPAY ==
[2021-08-12 08:57] LABS: Calculated LDL 37 mg/dL (<100); Cholesterol 149 mg/dL (<200); Glucose 84 mg/dL (74-106); HDL Cholesterol 55 mg/dL (40-60); Triglyceride 289 mg/dL (<150)
[2021-08-12 19:52] LABS: PSA, Screening 1.7 ng/mL (0.0-3.5)
== END 2021-08-12 02:36 | disposition home or self-care (01) ==
LOC: LBO 02:35
PROVIDERS: PCP Family Medicine; Visit Provider Family Medicine
DX: E78.5 Hyperlipidemia, unspecified (principal); R73.9 Hyperglycemia, unspecified; Z12.5 Encounter for screening for malignant neoplasm of prostate
CPT/HCPCS: 36415; 80061; 82947; 84153

== ENCOUNTER 2021-10-29 03:22 | Outpatient (CLI) | payer BC, MEDICAID, SELFPAY ==
[2021-10-29 10:49] LABS: Calculated LDL 77 mg/dL (<100); Cholesterol 164 mg/dL (<200); HDL Cholesterol 71 mg/dL (40-60); Triglyceride 84 mg/dL (<150)
[2021-10-29 18:43] LABS: PSA, Screening 2.1 ng/mL (0.0-3.5)
== END 2021-10-29 03:23 | disposition home or self-care (01) ==
LOC: LBO 03:22
PROVIDERS: PCP Family Medicine; Visit Provider Family Medicine
DX: Z12.5 Encounter for screening for malignant neoplasm of prostate (principal); E78.5 Hyperlipidemia, unspecified
CPT/HCPCS: 36415; 80061; 84153

== ENCOUNTER 2022-01-10 18:51 | Outpatient (REF) | payer BC, MEDICAID, SELFPAY ==
[2022-01-11 16:06] LABS: COVID-19 RT-PCR UVMMC Result Negative (Negative)
== END 2022-01-10 18:52 | disposition home or self-care (01) ==
LOC: LBN 18:51
PROVIDERS: PCP Family Medicine; Visit Provider Family Medicine
DX: R11.2 Nausea with vomiting, unspecified (principal); Z20.822 Contact with and (suspected) exposure to COVID-19
CPT/HCPCS: U0003

== ENCOUNTER 2023-01-13 03:05 | Outpatient (CLI) | payer MEDICAID, SELFPAY ==
[2023-01-13 13:41] LABS: Calculated LDL 70 mg/dL (<100); Cholesterol 164 mg/dL (<200); Glucose 120 mg/dL (74-106); HDL Cholesterol 81 mg/dL (40-60); Triglyceride 67 mg/dL (<150)
[2023-01-16 09:28] LABS: PSA, Screening 3.8 ng/mL (<=3.5)
== END 2023-01-13 03:06 | disposition home or self-care (01) ==
LOC: LBO 03:05
PROVIDERS: PCP Family Medicine; Visit Provider Family Medicine
DX: E78.5 Hyperlipidemia, unspecified (principal); R73.9 Hyperglycemia, unspecified; Z12.5 Encounter for screening for malignant neoplasm of prostate
CPT/HCPCS: 36415; 80061; 82947; 84153

== ENCOUNTER 2023-01-19 15:54 | Outpatient (REF) | payer MEDICAID, SELFPAY ==
--- NOTE | 2023-01-19 16:43 | SKI_PTH ---
PATIENT: Valente Capps LOC: [facility] U#:[id number] AGE/SX: 52/M ROOM: RE01/19/[address]: MIRYAM Escamilla : 1970 BED: DIS: 01/19/2023 SPEC #: [id number] RECD: 01/19/23 17:15 STATUS: ASH REAttila #: [id number] TOPHER: 01/19/23 16:[address]: Denise Esquivel DEPT: Surgical Specimen RECD BY: Jany Cavazos ENTERED: 01/19/23 17:16 SP TYPE: DEE BARAHONA DR: Francesco De Jesus MD Tissues: 1 - SKIN BIOPSY(SHAVE/PUNCH) Procedures: SKIN LEVEL 4 Comments: [id number]
== END 2023-01-19 15:55 | disposition home or self-care (01) ==
LOC: LBN 15:54
PROVIDERS: PCP Family Medicine; Visit Provider Physical Therapy Assistant
DX: C44.329 Squamous cell carcinoma of skin of other parts of face (principal)
CPT/HCPCS: 88305

== ENCOUNTER 2023-02-03 01:22 | Outpatient (CLI) | payer MEDICAID, SELFPAY ==
[2023-02-03 15:17] LABS: Hemoglobin A1C 5.1 % (<5.7)
== END 2023-02-03 01:23 | disposition home or self-care (01) ==
PROVIDERS: PCP Family Medicine; Visit Provider Family Medicine
DX: R73.09 Other abnormal glucose (principal)
CPT/HCPCS: 36415; 83036

== ENCOUNTER 2023-10-03 11:49 | Outpatient (REF) | payer MEDICAID, SELFPAY | END 2023-10-03 11:50 | disposition home or self-care (01) | LOC: LBN 11:49 | PROVIDERS: PCP Family Medicine; Visit Provider Nurse Practitioner Family | DX: H02.9 Unspecified disorder of eyelid (principal) | CPT/HCPCS: 87070; 87205 ==

== ENCOUNTER 2025-04-15 09:48 | Outpatient (CLI) | payer OTHER, SELFPAY ==
[2025-04-15 13:04] LABS: Calculated LDL 102 mg/dL (<100); Cholesterol 173 mg/dL (<200); HDL Cholesterol 56 mg/dL (>or=40); TSH (W/Ref FT4) 1.64 uIU/mL (0.36-3.74); Triglyceride 76 mg/dL (<150)
[2025-04-15 19:24] LABS: PSA, Screening 4.7 ng/mL (<=3.5)
== END 2025-04-15 09:49 | disposition home or self-care (01) ==
LOC: LOS 09:48
PROVIDERS: PCP Family Medicine; Referring Provider Family Medicine; Visit Provider Family Medicine
DX: Z12.5 Encounter for screening for malignant neoplasm of prostate (principal); Z13.220 Encounter for screening for lipoid disorders; E03.9 Hypothyroidism, unspecified
CPT/HCPCS: 36415; 80061; 84153; 84443

== ENCOUNTER 2025-06-16 03:51 | Outpatient (CLI) | payer OTHER, SELFPAY ==
[2025-06-17 22:10] LABS: PSA, Diagnostic 3.2 ng/mL (<=3.5)
== END 2025-06-16 03:52 | disposition home or self-care (01) ==
LOC: LBO 03:52
PROVIDERS: PCP Family Medicine; Visit Provider Nurse Practitioner Gerontology
DX: R97.20 Elevated prostate specific antigen [PSA] (principal); R39.9 Unspecified symptoms and signs involving the genitourinary system
CPT/HCPCS: 36415; 84153